=== PATIENT | male | born 1935 | race Caucasian/White ===

== ENCOUNTER 2019-11-20 14:27 | Inpatient (IN) ==
[2019-11-20] MEDS ORDERED: Morphine Sulfate 2 MG/ML SYRINGE IVP ONE (15:03)
[2019-11-20] MEDS ORDERED: Ondansetron 4 MG/2 ML VIAL IVP ONE ×2 (15:03→16:15)
[2019-11-20 15:53] LABS: Basophils # 0.2 K/mcL (0.0-0.2); Basophils % 1.3 %; Eosinophils # 0.3 K/mcL (0.0-0.6); Eosinophils % 1.9 %; Hematocrit 33.2 % (37.5-50.1); Hemoglobin 10.4 g/dL (12.9-16.9); Immature Granulocytes % 1.5 % (0-4); Lymphocytes # 1.1 K/mcL (0.6-4.6); Lymphocytes % 8.4 %; Mean Corpuscular HGB Conc 31.3 g/dL (31.6-35.5); Mean Corpuscular Hemoglobin 32.8 pg (28.0-33.3); Mean Corpuscular Volume 104.7 fL (83.0-100.0); Mean Platelet Volume 10.4 fL (9.4-12.4); Monocytes # 1.5 K/mcL (0.0-1.3); Monocytes % 11.2 %; Neutrophils # 10.2 K/mcL (1.6-8.9); Platelet Count 185 K/mcL (140-400); Red Blood Count 3.17 M/mcL (4.19-5.50); Red Cell Distribution Width 17.7 % (11.5-14.5); Segmented Neutrophils % 75.7 %; White Blood Count 13.5 K/mcL (4.3-11.1)
[2019-11-20 16:07] LABS: INR 2.3; Prothrombin Time 26.1 Seconds (9.4-12.1)
[2019-11-20 16:11] LABS: BUN/Creatinine Ratio 19 (6-26); Blood Urea Nitrogen 20 mg/dL (8-23); Calcium 9.3 mg/dL (8.6-10.3); Carbon Dioxide 23 mEq/L (23-29); Chloride 111 mEq/L (98-107); Glucose 85 mg/dL (70-105); Osmolality,Calculated 292 (280-300); Potassium 4.2 mEq/L (3.5-5.1); Sodium 140 mEq/L (136-145); eGFR For African Americans > 60 (> 60); eGFR For Non-African Americans > 60 (> 60)
[2019-11-20] MEDS ORDERED: Naloxone 0.4 MG/ML INJ IVP PRN (16:53)
[2019-11-20] MEDS ORDERED: ALPRAZolam 0.25 MG TABLET PO ONE (17:52)
[2019-11-21] MEDS: *HR* OxyCODONE/APAP 7.5/325 TABLET PO PRN ×3 (00:59→22:18)
[2019-11-21 04:40] LABS: Hematocrit 31.5 % (37.5-50.1); Mean Corpuscular HGB Conc 31.7 g/dL (31.6-35.5); Mean Corpuscular Hemoglobin 32.2 pg (28.0-33.3); Mean Corpuscular Volume 101.3 fL (83.0-100.0); Mean Platelet Volume 10.4 fL (9.4-12.4); Platelet Count 179 K/mcL (140-400); Red Blood Count 3.11 M/mcL (4.19-5.50); Red Cell Distribution Width 18.1 % (11.5-14.5); White Blood Count 8.7 K/mcL (4.3-11.1)
[2019-11-21 04:42] LABS: Prothrombin Time 22.2 Seconds (9.4-12.1)
[2019-11-21 05:01] LABS: BUN/Creatinine Ratio 16 (6-26); Blood Urea Nitrogen 19 mg/dL (8-23); Carbon Dioxide 25 mEq/L (23-29); Chloride 107 mEq/L (98-107); Glucose 121 mg/dL (70-105); Osmolality,Calculated 296 (280-300); Potassium 4.1 mEq/L (3.5-5.1); Sodium 141 mEq/L (136-145); eGFR For African Americans > 60 (> 60); eGFR For Non-African Americans 60 (> 60)
[2019-11-21 05:15] LABS: Eosinophils # 0.2 K/mcL (0.0-0.6); Lymphocytes # 3.1 K/mcL (0.6-4.6); Monocytes # 0.5 K/mcL (0.0-1.3); Neutrophils # 4.9 K/mcL (1.6-8.9); Reactive Lymphocytes Present (Not Present)
[2019-11-21 05:16] LABS: Platelet Estimate Normal (Normal)
[2019-11-21] MEDS: amLODIPine 5 MG TABLET PO SCH (08:17)
[2019-11-21] MEDS: Metoprolol XL (24 HR) Succ 50 MG TAB.ER.24H PO SCH (08:18)
[2019-11-21] MEDS: Gabapentin 300 MG CAPSULE PO SCH (08:18)
[2019-11-21] MEDS: tiZANidine 4 MG TABLET PO PRN (11:20)
[2019-11-22 08:01] LABS: Basophils # 0.2 K/mcL (0.0-0.2); Basophils % 1.4 %; Eosinophils # 0.3 K/mcL (0.0-0.6); Eosinophils % 2.4 %; Hematocrit 32.3 % (37.5-50.1); Hemoglobin 10.4 g/dL (12.9-16.9); Immature Granulocytes % 1.1 % (0-4); Lymphocytes % 9.2 %; Mean Corpuscular HGB Conc 32.2 g/dL (31.6-35.5); Mean Corpuscular Hemoglobin 32.4 pg (28.0-33.3); Mean Corpuscular Volume 100.6 fL (83.0-100.0); Mean Platelet Volume 10.6 fL (9.4-12.4); Monocytes # 2.1 K/mcL (0.0-1.3); Monocytes % 19.9 %; Platelet Count 180 K/mcL (140-400); Red Blood Count 3.21 M/mcL (4.19-5.50); Red Cell Distribution Width 17.9 % (11.5-14.5); White Blood Count 10.6 K/mcL (4.3-11.1)
[2019-11-22 08:02] LABS: INR 1.6
[2019-11-22] MEDS: Gabapentin 300 MG CAPSULE PO SCH (08:04)
[2019-11-22] MEDS: amLODIPine 5 MG TABLET PO SCH (08:04)
[2019-11-22] MEDS: Metoprolol XL (24 HR) Succ 50 MG TAB.ER.24H PO SCH (08:04)
[2019-11-22 08:15] LABS: BUN/Creatinine Ratio 19 (6-26); Blood Urea Nitrogen 22 mg/dL (8-23); Calcium 9.1 mg/dL (8.6-10.3); Carbon Dioxide 25 mEq/L (23-29); Chloride 103 mEq/L (98-107); Glucose 144 mg/dL (70-105); Osmolality,Calculated 298 (280-300); Potassium 4.1 mEq/L (3.5-5.1); Sodium 141 mEq/L (136-145); eGFR For African Americans > 60 (> 60); eGFR For Non-African Americans 59 (> 60)
[2019-11-22 08:37] LABS: Macrocytosis Present (Not Present); Platelet Estimate Normal (Normal)
[2019-11-22] MEDS: tiZANidine 4 MG TABLET PO PRN (12:04)
[2019-11-22] MEDS ORDERED: *HR* FentaNYL (PF) 100 MCG/2 ML VIAL ONE ×2 (15:57→17:39)
[2019-11-22] MEDS ORDERED: Dexamethasone 4 MG/ML VIAL ONE (15:57)
[2019-11-22] MEDS ORDERED: Ondansetron 4 MG/2 ML VIAL ONE (15:57)
[2019-11-22] MEDS ORDERED: Lidocaine HCL 4 ML Topical Solution (Laryng-O-Jet Kit Sterile Pak) TP ONE (16:00)
[2019-11-22] MEDS ORDERED: *HR* Propofol 200 MG/20 ML VIAL IVP ONE (16:02)
[2019-11-22] MEDS ORDERED: Ethanol\\Acetic Acid\\Na Ace\\Ben 1,000 ML IRRIG.SOLN IR ONE (16:07)
[2019-11-22] MEDS ORDERED: *HR* Dextrose 50 % in Water (Syg) 50 ML SYRINGE IVP PRN ×2 (16:08→20:24)
[2019-11-22] MEDS ORDERED: Dextrose Gel 15 GM/37.5 ML TUBE PO PRN ×4 (16:08→20:24)
[2019-11-22] MEDS ORDERED: D5% in Water 1,000 ML IVC PRN ×2 (16:08→20:24)
[2019-11-22] MEDS ORDERED: Insulin LISPRO 300 UNITS/3 ML VIAL SQ SCH ×2 (16:30→21:00)
[2019-11-22] MEDS ORDERED: *HR* OxyCODONE Immed Rel 5 MG TABLET PO PRN (16:41)
[2019-11-22] MEDS ORDERED: *HR* HYDROmorphone (PF) 1 MG/ML SYRINGE IVP PRN (16:41)
[2019-11-22] MEDS ORDERED: Ondansetron 4 MG/2 ML VIAL IVP ONE (16:41)
[2019-11-22] MEDS ORDERED: *HR* PHENYLEPHRINE 1,000 MCG/10 ML SYRINGE IVP ONE ×2 (16:47→17:57)
[2019-11-22] MEDS ORDERED: Neostigmine Methylsulfate 3 MG/3 ML SYRINGE ONE (17:37)
[2019-11-22] MEDS ORDERED: tiZANidine 4 MG TABLET PO PRN (20:24)
[2019-11-22] MEDS ORDERED: Naloxone 0.4 MG/ML INJ IVP PRN (20:24)
[2019-11-22] MEDS ORDERED: *HR* OxyCODONE/APAP 7.5/325 TABLET PO PRN (20:24)
[2019-11-22] MEDS: Insulin LISPRO 300 UNITS/3 ML VIAL SQ SCH ×2 (21:00→21:09)
[2019-11-22] MEDS: Ringers Solution, Lactated 1,000 ML IVC SCH (21:09)
[2019-11-22] MEDS: *HR* Warfarin 3 MG TABLET PO ONE (23:15)
[2019-11-23 06:50] LABS: Basophils # 0.1 K/mcL (0.0-0.2); Basophils % 0.7 %; Eosinophils % 0.1 %; Hematocrit 28.2 % (37.5-50.1); Hemoglobin 8.9 g/dL (12.9-16.9); Immature Granulocytes % 0.9 % (0-4); Lymphocytes # 0.6 K/mcL (0.6-4.6); Lymphocytes % 4.1 %; Mean Corpuscular HGB Conc 31.6 g/dL (31.6-35.5); Mean Corpuscular Hemoglobin 33.1 pg (28.0-33.3); Mean Corpuscular Volume 104.8 fL (83.0-100.0); Mean Platelet Volume 10.8 fL (9.4-12.4); Monocytes # 3.1 K/mcL (0.0-1.3); Monocytes % 22.8 %; Neutrophils # 9.6 K/mcL (1.6-8.9); Platelet Count 148 K/mcL (140-400); Red Blood Count 2.69 M/mcL (4.19-5.50); Red Cell Distribution Width 17.7 % (11.5-14.5); Segmented Neutrophils % 71.4 %; White Blood Count 13.4 K/mcL (4.3-11.1)
[2019-11-23 06:56] LABS: INR 1.8
[2019-11-23 07:08] LABS: Anisocytosis 1+ (Not Present)
[2019-11-23 07:09] LABS: Platelet Estimate Normal (Normal)
[2019-11-23 07:13] LABS: Calcium 8.5 mg/dL (8.6-10.3); Potassium 4.6 mEq/L (3.5-5.1)
[2019-11-23] MEDS: Gabapentin 300 MG CAPSULE PO SCH (08:10)
[2019-11-23] MEDS: amLODIPine 5 MG TABLET PO SCH (08:10)
[2019-11-23] MEDS: Metoprolol XL (24 HR) Succ 50 MG TAB.ER.24H PO SCH (08:10)
[2019-11-23] MEDS: Insulin LISPRO 300 UNITS/3 ML VIAL SQ SCH ×3 (10:38→17:53)
[2019-11-23] MEDS ORDERED: *HR* OxyCODONE/APAP 5/325 TABLET PO PRN (13:36)
[2019-11-23] MEDS ORDERED: Warfarin perPT PO PRN (18:00)
[2019-11-23] MEDS ORDERED: *HR* Warfarin 5 MG TABLET PO ONE (19:15)
[2019-11-23] MEDS: *HR* Warfarin 3 MG TABLET PO ONE (20:06)
[2019-11-23 21:02] LABS: Hematocrit 25.7 % (37.5-50.1); Hemoglobin 8.3 g/dL (12.9-16.9)
[2019-11-23 22:39] LABS: INR 1.7; Prothrombin Time 18.8 Seconds (9.4-12.1)
[2019-11-23] MEDS: Ringers Solution, Lactated 1,000 ML IVC SCH (23:57)
[2019-11-24 06:09] LABS: Hematocrit 22.9 % (37.5-50.1); Hemoglobin 7.3 g/dL (12.9-16.9); Mean Corpuscular HGB Conc 31.9 g/dL (31.6-35.5); Mean Corpuscular Volume 103.6 fL (83.0-100.0); Platelet Count 144 K/mcL (140-400); Red Blood Count 2.21 M/mcL (4.19-5.50); Red Cell Distribution Width 17.5 % (11.5-14.5); White Blood Count 12.5 K/mcL (4.3-11.1)
[2019-11-24 06:12] LABS: INR 1.5; Prothrombin Time 17.3 Seconds (9.4-12.1)
[2019-11-24 06:34] LABS: Calcium 7.9 mg/dL (8.6-10.3); Potassium 4.3 mEq/L (3.5-5.1)
[2019-11-24] MEDS: Insulin LISPRO 300 UNITS/3 ML VIAL SQ SCH ×4 (09:31→20:35)
[2019-11-24] MEDS: Gabapentin 300 MG CAPSULE PO SCH (09:31)
[2019-11-24] MEDS: amLODIPine 5 MG TABLET PO SCH (09:31)
[2019-11-24] MEDS: Metoprolol XL (24 HR) Succ 50 MG TAB.ER.24H PO SCH (09:31)
[2019-11-24] MEDS: Ringers Solution, Lactated 1,000 ML IVC SCH ×2 (10:49)
[2019-11-24] MEDS ORDERED: 0.9 % Sodium Chloride 250 ML ONE (11:58)
[2019-11-24] MEDS ORDERED: Acetaminophen IV 1,000 MG/100 ML INFUS..BTL IVPB ONE (13:59)
[2019-11-24] MEDS ORDERED: Ringers Solution, Lactated 1,000 ML IVC ONE (14:52)
[2019-11-24 16:10] LABS: Basophils # 0.1 K/mcL (0.0-0.2); Basophils % 0.8 %; Eosinophils # 0.2 K/mcL (0.0-0.6); Eosinophils % 1.6 %; Hematocrit 24.6 % (37.5-50.1); Hemoglobin 8.2 g/dL (12.9-16.9); Immature Granulocytes % 1.3 % (0-4); Lymphocytes % 8.5 %; Mean Corpuscular HGB Conc 33.3 g/dL (31.6-35.5); Mean Corpuscular Hemoglobin 32.3 pg (28.0-33.3); Mean Platelet Volume 10.7 fL (9.4-12.4); Monocytes # 2.7 K/mcL (0.0-1.3); Monocytes % 22.8 %; Neutrophils # 7.8 K/mcL (1.6-8.9); Platelet Count 142 K/mcL (140-400); Red Blood Count 2.54 M/mcL (4.19-5.50); Red Cell Distribution Width 17.9 % (11.5-14.5)
[2019-11-24 16:12] LABS: Mean Corpuscular Volume 96.9 fL (83.0-100.0)
[2019-11-24 16:33] LABS: Platelet Estimate Normal (Normal)
[2019-11-24] MEDS ORDERED: *HR* Warfarin 3 MG TABLET PO ONE (18:00)
[2019-11-25 05:01] LABS: Hematocrit 24.4 % (37.5-50.1); Hemoglobin 7.9 g/dL (12.9-16.9); Mean Corpuscular HGB Conc 32.4 g/dL (31.6-35.5); Mean Corpuscular Hemoglobin 32.5 pg (28.0-33.3); Mean Corpuscular Volume 100.4 fL (83.0-100.0); Mean Platelet Volume 11.1 fL (9.4-12.4); Platelet Count 160 K/mcL (140-400); Red Blood Count 2.43 M/mcL (4.19-5.50); Red Cell Distribution Width 18.9 % (11.5-14.5); White Blood Count 10.1 K/mcL (4.3-11.1)
[2019-11-25 05:04] LABS: Calcium 7.9 mg/dL (8.6-10.3); Potassium 4.2 mEq/L (3.5-5.1)
[2019-11-25 05:07] LABS: Prothrombin Time 22.5 Seconds (9.4-12.1)
[2019-11-25] MEDS ORDERED: Ringers Solution, Lactated 500 ML IVC ONE (07:45)
[2019-11-25] MEDS: Insulin LISPRO 300 UNITS/3 ML VIAL SQ SCH ×4 (08:30→20:26)
[2019-11-25] MEDS: Metoprolol XL (24 HR) Succ 50 MG TAB.ER.24H PO SCH (08:32)
[2019-11-25] MEDS: amLODIPine 5 MG TABLET PO SCH (08:32)
[2019-11-25] MEDS: Gabapentin 300 MG CAPSULE PO SCH (08:32)
[2019-11-25] MEDS ORDERED: Acetaminophen IV 1,000 MG/100 ML INFUS..BTL IVPB ONE (08:55)
[2019-11-25] MEDS: cefTRIAXone 2,000 MG in Water for inj. (sterile) 20 ML IVP SCH (15:14)
[2019-11-25] MEDS: metroNIDAZOLE 500 MG TABLET PO SCH ×2 (15:14→20:32)
[2019-11-25] MEDS ORDERED: WARFARIN PO ONE (18:00)
[2019-11-25] MEDS ORDERED: *HR* Warfarin 4 MG TABLET PO ONE (18:00)
[2019-11-25] MEDS ORDERED: Haloperidol Lactate 5 MG/ML VIAL IVP ONE (23:23)
[2019-11-26] MEDS ORDERED: *HR* Promethazine 25 MG/ML VIAL IVP ONE (01:10)
[2019-11-26] MEDS ORDERED: Haloperidol Lactate 5 MG/ML VIAL IVP ONE (01:10)
[2019-11-26 02:03] LABS: Hematocrit 24.3 % (37.5-50.1); Hemoglobin 7.9 g/dL (12.9-16.9); Mean Corpuscular HGB Conc 32.5 g/dL (31.6-35.5); Mean Corpuscular Volume 98.4 fL (83.0-100.0); Mean Platelet Volume 10.7 fL (9.4-12.4); Platelet Count 200 K/mcL (140-400); Red Blood Count 2.47 M/mcL (4.19-5.50); Red Cell Distribution Width 18.3 % (11.5-14.5); White Blood Count 8.9 K/mcL (4.3-11.1)
[2019-11-26 02:10] LABS: BUN/Creatinine Ratio 41 (6-26); Blood Urea Nitrogen 53 mg/dL (8-23); Carbon Dioxide 23 mEq/L (23-29); Chloride 106 mEq/L (98-107); Glucose 160 mg/dL (70-105); Osmolality,Calculated 298 (280-300); Potassium 4.2 mEq/L (3.5-5.1); Sodium 135 mEq/L (136-145); eGFR For African Americans > 60 (> 60); eGFR For Non-African Americans 54 (> 60)
[2019-11-26] MEDS: Gabapentin 300 MG CAPSULE PO SCH (08:14)
[2019-11-26] MEDS: amLODIPine 5 MG TABLET PO SCH (08:14)
[2019-11-26] MEDS: Insulin LISPRO 300 UNITS/3 ML VIAL SQ SCH ×4 (08:14→21:12)
[2019-11-26] MEDS: metroNIDAZOLE 500 MG TABLET PO SCH ×3 (08:14→21:10)
[2019-11-26] MEDS: Metoprolol XL (24 HR) Succ 50 MG TAB.ER.24H PO SCH (08:15)
[2019-11-26] MEDS: cefTRIAXone 2,000 MG in Water for inj. (sterile) 20 ML IVP SCH (15:11)
[2019-11-26 17:59] LABS: INR 2.8; Prothrombin Time 31.9 Seconds (9.4-12.1)
[2019-11-26] MEDS ORDERED: *HR* Warfarin 2.5 MG TABLET PO ONE (18:30)
[2019-11-27 04:04] LABS: Hematocrit 24.8 % (37.5-50.1); Mean Corpuscular HGB Conc 32.3 g/dL (31.6-35.5); Mean Corpuscular Hemoglobin 32.1 pg (28.0-33.3); Mean Corpuscular Volume 99.6 fL (83.0-100.0); Mean Platelet Volume 10.7 fL (9.4-12.4); Platelet Count 252 K/mcL (140-400); Red Blood Count 2.49 M/mcL (4.19-5.50); Red Cell Distribution Width 17.8 % (11.5-14.5); White Blood Count 8.3 K/mcL (4.3-11.1)
[2019-11-27 04:10] LABS: INR 2.7; Prothrombin Time 30.9 Seconds (9.4-12.1)
[2019-11-27 04:20] LABS: BUN/Creatinine Ratio 41 (6-26); Blood Urea Nitrogen 51 mg/dL (8-23); Calcium 8.1 mg/dL (8.6-10.3); Carbon Dioxide 25 mEq/L (23-29); Chloride 103 mEq/L (98-107); Glucose 149 mg/dL (70-105); Osmolality,Calculated 298 (280-300); Potassium 4.1 mEq/L (3.5-5.1); Sodium 136 mEq/L (136-145); eGFR For African Americans > 60 (> 60); eGFR For Non-African Americans 56 (> 60)
[2019-11-27 06:29] VITALS: BP 137/61
[2019-11-27] MEDS: Metoprolol XL (24 HR) Succ 50 MG TAB.ER.24H PO SCH (08:31)
[2019-11-27] MEDS: amLODIPine 5 MG TABLET PO SCH (08:31)
[2019-11-27] MEDS: Gabapentin 300 MG CAPSULE PO SCH (08:31)
[2019-11-27] MEDS: metroNIDAZOLE 500 MG TABLET PO SCH (08:32)
[2019-11-27] MEDS: Insulin LISPRO 300 UNITS/3 ML VIAL SQ SCH (08:34)
== END 2019-11-27 12:25 | DRG 469 ==
LOC: EMEROOARM 14:27 → 3ANU 14:27 → SUATTDRO 17:52 → 3NENU 11-22 19:56
PROVIDERS: ADMIT Internal Medicine; ATTEND Internal Medicine

== ENCOUNTER 2021-07-04 12:12 | Inpatient (IN) ==
[2021-07-04] MEDS ORDERED: 0.9 % Sodium Chloride 1,000 ML IVC ONE (14:49)
[2021-07-04] MEDS ORDERED: Piperacillin/Tazobactam 3.375 GM in 0.9 % Sodium Chloride Mini Bag 100 ML IVPB ONE (14:58)
[2021-07-04 15:18] LABS: Basophils # 0.2 K/mcL (0.0-0.2); Basophils % 2.2 %; Eosinophils # 0.2 K/mcL (0.0-0.6); Hematocrit 31.7 % (37.5-50.1); Hemoglobin 10.1 g/dL (12.9-16.9); Lymphocytes # 1.5 K/mcL (0.6-4.6); Lymphocytes % 19.7 %; Mean Corpuscular HGB Conc 31.9 g/dL (31.6-35.5); Mean Corpuscular Hemoglobin 33.1 pg (28.0-33.3); Mean Corpuscular Volume 103.9 fL (83.0-100.0); Mean Platelet Volume 10.2 fL (9.4-12.4); Monocytes # 1.2 K/mcL (0.0-1.3); Monocytes % 15.8 %; Neutrophils # 4.4 K/mcL (1.6-8.9); Platelet Count 211 K/mcL (140-400); Red Blood Count 3.05 M/mcL (4.19-5.50); Red Cell Distribution Width 17.7 % (11.5-14.5); Segmented Neutrophils % 56.3 %; White Blood Count 7.7 K/mcL (4.3-11.1)
[2021-07-04] MEDS ORDERED: Acetaminophen 325 MG TABLET PO PRN (15:21)
[2021-07-04] MEDS ORDERED: *HR* HYDROcodone/Acet 5/325 mg TABLET PO PRN (15:21)
[2021-07-04] MEDS ORDERED: Ondansetron 4 MG/2 ML VIAL IVP PRN (15:21)
[2021-07-04] MEDS ORDERED: D5% in Water 1,000 ML IVC PRN (15:21)
[2021-07-04] MEDS ORDERED: Dextrose Gel 15 GM/37.5 ML TUBE PO PRN ×2 (15:21)
[2021-07-04] MEDS ORDERED: Naloxone 0.4 MG/ML INJ IVP PRN (15:21)
[2021-07-04] MEDS ORDERED: *HR* Dextrose 50 % in Water (Vial) 50 ML VIAL IVP PRN (15:21)
[2021-07-04 15:26] LABS: Activated Partial Thrombo Time 64.4 Seconds (26.0-36.0)
[2021-07-04 15:33] LABS: Prothrombin Time 60.6 Seconds (9.4-12.1)
[2021-07-04 15:34] LABS: INR 5.5
[2021-07-04 15:35] LABS: Albumin 4.5 g/dL (3.5-5.7); Albumin/Globulin Ratio 1.2 (1.1-2.2); Bilirubin,Total 0.4 mg/dL (0.3-1.0); Calcium 9.7 mg/dL (8.6-10.3); Globulin 3.8 g/dL (2.4-3.5); Potassium 5.3 mEq/L (3.5-5.1); Total Protein 8.3 g/dL (6.4-8.9)
[2021-07-04] MEDS ORDERED: *HR* Phytonadione 5 MG TABLET PO ONE (15:38)
[2021-07-04] MEDS ORDERED: 0.9 % Sodium Chloride 1,000 ML IVC SCH (15:45)
[2021-07-04] MEDS: Insulin LISPRO 300 UNITS/3 ML VIAL SUBQ SCH (20:41)
[2021-07-05] MEDS: Piperacillin/Tazobactam 3.375 GM in 0.9 % Sodium Chloride Mini Bag 100 ML IVPB SCH ×3 (00:38→16:14)
[2021-07-05 06:00] LABS: Basophils # 0.1 K/mcL (0.0-0.2); Basophils % 2.1 %; Eosinophils # 0.3 K/mcL (0.0-0.6); Eosinophils % 5.1 %; Hematocrit 28.3 % (37.5-50.1); Hemoglobin 8.9 g/dL (12.9-16.9); Immature Granulocytes % 3.6 % (0-4); Lymphocytes # 1.1 K/mcL (0.6-4.6); Lymphocytes % 18.3 %; Mean Corpuscular HGB Conc 31.4 g/dL (31.6-35.5); Mean Corpuscular Hemoglobin 32.2 pg (28.0-33.3); Mean Corpuscular Volume 102.5 fL (83.0-100.0); Mean Platelet Volume 10.5 fL (9.4-12.4); Monocytes # 1.1 K/mcL (0.0-1.3); Monocytes % 18.3 %; Neutrophils # 3.1 K/mcL (1.6-8.9); Platelet Count 187 K/mcL (140-400); Red Blood Count 2.76 M/mcL (4.19-5.50); Red Cell Distribution Width 17.4 % (11.5-14.5); Segmented Neutrophils % 52.6 %; White Blood Count 5.8 K/mcL (4.3-11.1)
[2021-07-05 06:24] LABS: INR 5.3; Prothrombin Time 58.8 Seconds (9.4-12.1)
[2021-07-05 06:26] LABS: Anisocytosis 1+ (Not Present); Macrocytosis Present (Not Present); Platelet Estimate Normal (Normal)
[2021-07-05 06:37] LABS: Calcium 8.7 mg/dL (8.6-10.3); Potassium 4.9 mEq/L (3.5-5.1)
[2021-07-05] MEDS: Insulin LISPRO 300 UNITS/3 ML VIAL SUBQ SCH ×3 (07:54→17:31)
[2021-07-05] MEDS: amLODIPine 5 MG TABLET PO SCH (11:19)
[2021-07-06] MEDS: Piperacillin/Tazobactam 3.375 GM in 0.9 % Sodium Chloride Mini Bag 100 ML IVPB SCH ×4 (00:38→23:19)
[2021-07-06 03:26] LABS: Basophils # 0.1 K/mcL (0.0-0.2); Basophils % 2.3 %; Eosinophils # 0.3 K/mcL (0.0-0.6); Hemoglobin 8.7 g/dL (12.9-16.9); Immature Granulocytes % 2.8 % (0-4); Lymphocytes # 1.1 K/mcL (0.6-4.6); Lymphocytes % 19.7 %; Mean Corpuscular HGB Conc 32.2 g/dL (31.6-35.5); Mean Corpuscular Hemoglobin 33.1 pg (28.0-33.3); Mean Corpuscular Volume 102.7 fL (83.0-100.0); Monocytes # 0.9 K/mcL (0.0-1.3); Monocytes % 16.2 %; Platelet Count 189 K/mcL (140-400); Red Blood Count 2.63 M/mcL (4.19-5.50); Red Cell Distribution Width 17.1 % (11.5-14.5); White Blood Count 5.7 K/mcL (4.3-11.1)
[2021-07-06 03:37] LABS: INR 1.7; Prothrombin Time 19.4 Seconds (9.4-12.1)
[2021-07-06 03:50] LABS: Albumin 3.6 g/dL (3.5-5.7); Albumin/Globulin Ratio 1.3 (1.1-2.2); Bilirubin,Direct 0.1 mg/dL (0.0-0.2); Bilirubin,Indirect 0.4 mg/dL (0.0-1.0); Bilirubin,Total 0.5 mg/dL (0.3-1.0); Calcium 8.9 mg/dL (8.6-10.3); Globulin 2.8 g/dL (2.4-3.5); Magnesium 1.9 mg/dL (1.6-2.6); Potassium 4.7 mEq/L (3.5-5.1); Total Protein 6.4 g/dL (6.4-8.9)
[2021-07-06 03:54] LABS: % Iron Saturation 33 % (20-55); Iron 69 mcg/dL (65-175); Transferrin 148 mg/dL (203-362)
[2021-07-06 04:09] LABS: Ferritin 266 ng/mL (20-250)
[2021-07-06] MEDS: Loratadine 10 MG TABLET PO SCH (09:26)
[2021-07-06] MEDS: Insulin LISPRO 300 UNITS/3 ML VIAL SUBQ SCH ×3 (09:26→17:26)
[2021-07-06] MEDS: amLODIPine 5 MG TABLET PO SCH (09:27)
[2021-07-06] MEDS: Gabapentin 300 MG CAPSULE PO SCH (09:27)
[2021-07-06] MEDS: Multivit/Ca/Min/Fe/FA 1 TAB TABLET PO SCH (09:27)
[2021-07-06] MEDS: Metoprolol XL (24 HR) Succ 50 MG TAB.ER.24H PO SCH (09:27)
[2021-07-06] MEDS ORDERED: Lidocaine/EPI 1:100k 1% 50 ML VIAL ONE (13:58)
[2021-07-06] MEDS ORDERED: Lidocaine -MPF 2% 2 ML VIAL ONE (14:08)
[2021-07-06] MEDS ORDERED: *HR* FentaNYL (PF) 100 MCG/2 ML VIAL ONE (14:08)
[2021-07-06] MEDS ORDERED: *HR* Propofol 200 MG/20 ML VIAL IVP ONE (14:08)
[2021-07-06] MEDS ORDERED: *HR* Warfarin 3 MG TABLET PO ONE (19:00)
[2021-07-07 03:35] LABS: Basophils # 0.2 K/mcL (0.0-0.2); Basophils % 2.2 %; Eosinophils # 0.4 K/mcL (0.0-0.6); Eosinophils % 5.3 %; Hematocrit 27.9 % (37.5-50.1); Hemoglobin 8.6 g/dL (12.9-16.9); Immature Granulocytes % 2.2 % (0-4); Lymphocytes # 1.3 K/mcL (0.6-4.6); Lymphocytes % 19.3 %; Mean Corpuscular HGB Conc 30.8 g/dL (31.6-35.5); Mean Corpuscular Volume 103.7 fL (83.0-100.0); Mean Platelet Volume 10.2 fL (9.4-12.4); Monocytes # 1.1 K/mcL (0.0-1.3); Monocytes % 15.6 %; Neutrophils # 3.7 K/mcL (1.6-8.9); Platelet Count 185 K/mcL (140-400); Red Blood Count 2.69 M/mcL (4.19-5.50); Red Cell Distribution Width 17.1 % (11.5-14.5); Segmented Neutrophils % 55.4 %; White Blood Count 6.7 K/mcL (4.3-11.1)
[2021-07-07 03:53] LABS: INR 1.2; Prothrombin Time 14.1 Seconds (9.4-12.1)
[2021-07-07 03:54] LABS: Magnesium 1.9 mg/dL (1.6-2.6); Potassium 4.7 mEq/L (3.5-5.1)
[2021-07-07 08:19] LABS: Estimated Average Glucose 140 mg/dl; Hemoglobin A1C 6.5 %
[2021-07-07] MEDS: Gabapentin 300 MG CAPSULE PO SCH (09:22)
[2021-07-07] MEDS: Multivit/Ca/Min/Fe/FA 1 TAB TABLET PO SCH (09:22)
[2021-07-07] MEDS: amLODIPine 5 MG TABLET PO SCH (09:22)
[2021-07-07] MEDS: Piperacillin/Tazobactam 3.375 GM in 0.9 % Sodium Chloride Mini Bag 100 ML IVPB SCH ×2 (09:23→17:16)
[2021-07-07] MEDS: Loratadine 10 MG TABLET PO SCH (09:23)
[2021-07-07] MEDS: Metoprolol XL (24 HR) Succ 50 MG TAB.ER.24H PO SCH (09:23)
[2021-07-07] MEDS: Insulin LISPRO 300 UNITS/3 ML VIAL SUBQ SCH ×3 (09:30→17:07)
[2021-07-07] MEDS ORDERED: Warfarin perPT PO PRN (18:00)
[2021-07-07] MEDS ORDERED: *HR* Warfarin 3 MG TABLET PO ONE (18:00)
[2021-07-08 05:21] LABS: Basophils # 0.2 K/mcL (0.0-0.2); Basophils % 2.9 %; Eosinophils # 0.4 K/mcL (0.0-0.6); Eosinophils % 7.2 %; Hematocrit 27.9 % (37.5-50.1); Hemoglobin 8.8 g/dL (12.9-16.9); Immature Granulocytes % 3.9 % (0-4); Lymphocytes # 1.4 K/mcL (0.6-4.6); Lymphocytes % 27.5 %; Mean Corpuscular HGB Conc 31.5 g/dL (31.6-35.5); Mean Corpuscular Hemoglobin 32.5 pg (28.0-33.3); Monocytes # 0.9 K/mcL (0.0-1.3); Monocytes % 17.2 %; Neutrophils # 2.1 K/mcL (1.6-8.9); Platelet Count 186 K/mcL (140-400); Red Blood Count 2.71 M/mcL (4.19-5.50); Red Cell Distribution Width 16.9 % (11.5-14.5); Segmented Neutrophils % 41.3 %; White Blood Count 5.2 K/mcL (4.3-11.1)
[2021-07-08 05:32] LABS: INR 1.3; Prothrombin Time 14.5 Seconds (9.4-12.1)
[2021-07-08 05:39] LABS: Calcium 9.1 mg/dL (8.6-10.3); Magnesium 1.8 mg/dL (1.6-2.6); Potassium 4.3 mEq/L (3.5-5.1)
[2021-07-08 07:34] VITALS: BP 128/76; PULSE 73; TEMP 98.3; O2SAT 93
[2021-07-08] MEDS: amLODIPine 5 MG TABLET PO SCH (07:42)
[2021-07-08] MEDS: Metoprolol XL (24 HR) Succ 50 MG TAB.ER.24H PO SCH (07:42)
[2021-07-08] MEDS: Multivit/Ca/Min/Fe/FA 1 TAB TABLET PO SCH (07:42)
[2021-07-08] MEDS: Gabapentin 300 MG CAPSULE PO SCH (07:42)
[2021-07-08] MEDS: Loratadine 10 MG TABLET PO SCH (07:43)
[2021-07-08] MEDS: Piperacillin/Tazobactam 3.375 GM in 0.9 % Sodium Chloride Mini Bag 100 ML IVPB SCH ×2 (07:43)
[2021-07-08] MEDS ORDERED: Cyanocobalamin (B-12) 1,000 MCG/ML VIAL SQ ONE (09:00)
== END 2021-07-08 08:50 | disposition left against medical advice (07) | DRG 580 ==
LOC: 3NENU 12:12 → EMEROOARM 12:12 → 3NENU 17:51 → SUATTDRO 20:08
PROVIDERS: ADMIT Internal Medicine; ATTEND Pharmacist